=== PATIENT | male | born 1965 | race Caucasian/White ===

== ENCOUNTER 2018-04-19 08:48 | Day surgery (SDC) | payer BC, OTHER ==
[~2018-04-19] VITALS: Ht 180.3 cm; Wt 126.8 kg
[2018-04-19 09:55] VITALS: BP 138/101
[2018-04-19] MEDS ORDERED: ACET-76 PO (10:03)
[2018-04-19] MEDS ORDERED: POTA20TA14 PO (10:03)
[2018-04-19] MEDS ORDERED: MV-M1TAB3 PO (10:03)
[2018-04-19] MEDS ORDERED: FURO20TA3 PO (10:03)
[2018-04-19] MEDS ORDERED: IBUP-1222 PO (10:03)
[2018-04-19] MEDS ORDERED: LISI-170 PO (10:03)
[2018-04-19] MEDS ORDERED: ALPR-475 PO (10:03)
[2018-04-19] MEDS ORDERED: ALBU6.7H INH (10:03)
[2018-04-19] MEDS ORDERED: VERAPAMIL 2.5 MG/ML, 2ML ONE (11:30)
[2018-04-19] MEDS ORDERED: BIVALIRUDIN 250 MG ONE ×2 (11:30→11:52)
[2018-04-19] MEDS ORDERED: HEPARIN 1,000 UNITS/ML, 10ML ONE (11:30)
[2018-04-19] MEDS ORDERED: MIDAZOLAM 1 MG/ML, 5ML ONE (11:30)
[2018-04-19] MEDS ORDERED: FENTANYL PF 100 MCG/2ML ONE (11:30)
[2018-04-19] MEDS ORDERED: LIDOCAINE-MPF 2%, 2ML ONE (11:31)
[2018-04-19] MEDS ORDERED: FUROSEMIDE 40 MG/4 ML IV ONE (13:00)
[2018-04-19] MEDS ORDERED: FUROSEMIDE 40 MG/4 ML ONE (13:08)
== END 2018-04-19 15:18 | disposition home or self-care (01) ==
LOC: CACL 08:48
PROVIDERS: ATTEND Internal Medicine Cardiovascular Disease
DX: I50.9 Heart failure, unspecified (principal); I10 Essential (primary) hypertension; J45.909 Unspecified asthma, uncomplicated; Z88.5 Allergy status to narcotic agent; Z88.8 Allergy status to other drugs, medicaments and biological substances; Z87.39 Personal history of other diseases of the musculoskeletal system and connective tissue; Z96.652 Presence of left artificial knee joint; Z98.890 Other specified postprocedural states; Z87.891 Personal history of nicotine dependence; Z72.89 Other problems related to lifestyle
CPT/HCPCS: 93458; 99156; C1769; C1894; J1644; J1940; J2250; J3010; J3490; Q9967; J0583